=== PATIENT | female | born 1965 | race Caucasian/White ===

== ENCOUNTER → 2017-01-03 | Outpatient (CLI) | payer BC ==
[~2017-01-03] MED LIST: ASPI-232 PO; AZEL137S6 INTNAS; B-COCAP2 PO; CHOL100010 PO; FEXO1TAB58 PO; FLUO10CA48 PO; LEVO1TAB50 PO; MAGNESIUM PO; MELA1TAB3 PO
--- NOTE | 2017-01-04 13:18 | MAMMOGRAPHY REPORT ---
BILATERAL DIGITAL SCREENING MAMMOGRAM TOMOSYNTHESIS WITH CAD: 01/03/2017 CLINICAL HISTORY: Routine screening. Patient has no complaints. TECHNIQUE: Breast tomosynthesis in addition to standard 2D mammography was performed. Current study was also evaluated with a Computer Aided Detection (CAD) system. COMPARISON: Comparison is made to exams dated: 08/07/2015 mammogram, 07/09/2014 mammogram, 3 mammogram, 12/16/2010 ultrasound, 06/26/2009 mammogram, and 12/16/2010 mammogram - [facility]. BREAST COMPOSITION: The tissue of both breasts is heterogeneously dense, which may obscure small ma sses. FINDINGS: The parenchymal pattern is unchanged. No developing mass, architectural distortion or clu ster of suspicious microcalcifications is seen in either breast. IMPRESSION: ACR BI-RADS CATEGORY 2: BENIGN There is no mammographic evidence of malignancy. A 1 year screening mammogram is recommended. The p atient will receive written notification of the results. Approximately 10% of breast cancers are not detected with mammography. A negative mammographic repor t should not delay biopsy if a clinically suggestive mass is present. Briseida Wagner M.D. ay/:01/03/2017 16:53:09 [employer] M[employer]: Jillian ROSEN(R)(M), [facility] letter sent: Normal 1/2 BI-RADS Code: ACR BI-RADS Category 2: Benign
== END | disposition home or self-care (01) ==
LOC: C.MAMM 12:55
PROVIDERS: ATTEND Family Medicine
DX: Z12.31 Encounter for screening mammogram for malignant neoplasm of breast (principal)

== ENCOUNTER 2020-05-29 08:32 | Observation (INO) ==
[2020-05-29] MEDS ORDERED: KETOROLAC TROMETHAMINE 15 MG/ML VIAL IV STA (09:01)
[2020-05-29] MEDS ORDERED: ONDANSETRON INJ 2 MG/ML 2 ML VIAL IV STA (09:01)
--- NOTE | 2020-05-29 09:04 | Emergency Department Note ---
History of Present Illness General Chief complaint: Vomiting Stated complaint: THROWING UP, ABD PAIN Time Seen by Provider: 05/29/20 08:50 History of Present Illness Maximum Pain Intensity: 7 This is a 54-year-old female that presents to the emergency department via private vehicle with complaints of "throwing up, abdominal pain". The patient states that she felt fine when she went to bed last night. She ate scrambled eggs for dinner. She then notes around midnight she awoke with sudden onset of diarrhea, vomiting followed by excruciating right lower quadrant abdominal discomfort. She notes that the pain is worse with sitting up and is better when she lies flat. She denies any hematemesis or hematochezia. She denies any fevers, chills, chest pain, shortness of breath, loss of taste or smell. She notes a surgical history for that of ectopic but still has the ap pendix and gallbladder. She notes allergies to that a penicillin and sulfa. She has been n.p.o. since 7 PM last evening. Home Medications Home Medications Medication Instructions Recorded Confirmed Type cholecalciferol (vitamin D3) 50 2,000 unit PO QAM tab 04/23/19 05/29/20 History mcg (2,000 unit) tablet escitalopram oxalate 5 mg tablet 5 mg PO QAM tab 04/23/19 05/29/20 History levothyroxine 175 mcg tablet 175 mcg PO QAM tab 04/23/19 05/29/20 History omeprazole 40 mg capsule,delayed 40 mg PO QAM 04/07/20 05/29/20 History release clobetasol 0.05 % topical ointment 1 applic TOPICAL .COMPLEX #45 g 05/18/20 05/29/20 Rx bupropion HCl 150 mg PO QAM 05/29/20 05/29/20 History Allergies Allergy/AdvReac Type Severity Reaction Status Date / Time Penicillins Allergy Unknown swelling/ra Verified 05/29/20 09:55 sh Sulfa (Sulfonamide Allergy Verified 05/29/20 09:55 Antibiotics) Past Med/Surg History Medical History Angioma Attention deficit hyperactivity disorder, predominantly inattentive type (09/28/11) Dermatofibroma Ectopic Heartburn (09/28/11) Hypothyroid [id number] Migraine Migraine headache Seasonal allergies Vomiting Surgical History H/O unilateral salpingectomy right side S/P foot surgery S/P laparoscopy S/P nasal surgery nasal fx S/P wisdom tooth extraction Status post hysteroscopy Family History Father Myocardial infarction Family/Other No problems noted. Mother Alzheimer disease Grandmother (Paternal) Breast cancer Ovarian cancer Denies family history of Colorectal cancer Social History Smoking Status: Former smoker Hx Alcohol Use: Yes (social) Preferred Language: Colombian Feels Safe at Home: Yes Review of Systems A total of 10 systems reviewed and were otherwise negative Physical Exam Vital Signs Vital Signs - 24 hr 05/29/20 08:43 05/29/20 09:27 05/29/20 09:30 Temperature 36.5 C Temperature Source Oral Pulse Rate 91 H 73 71 Pulse Rate from SpO2 Sensor 72 71 Pulse Rhythm Regular Pulse Strength Normal Respiratory Rate 20 20 17 Respiratory Effort / Characteristics Non-Labored Spontaneous Respiratory Depth Normal Respiratory Pattern Regular Blood Pressure 118/78 122/84 129/80 Blood Pressure Mean 91 88 91 Blood Pressure Position Sitting Pulse Oximetry 98 99 95 Oxygen Delivery Method Room Air Sepsis Recent Fever Within 48 Hours No Sepsis New/Unexplained Change in Mental Status No Sepsis Action Taken by Nursing No Action Required 05/29/20 10:00 Temperature Temperature Source Pulse Rate 77 Pulse Rate from SpO2 Sensor 77 Pulse Rhythm Pulse Strength Respiratory Rate 23 Respiratory Effort / Characteristics Respiratory Depth Respiratory Pattern Blood Pressure 112/75 Blood Pressure Mean 83 Blood Pressure Position Pulse Oximetry 95 Oxygen Delivery Method Sepsis Recent Fever Within 48 Hours Sepsis New/Unexplained Change in Mental Status Sepsis Action Taken by Nursing VITAL SIGNS - Vital signs and nursing notes were reviewed. Stable and afebrile. GENERAL - 54-year-old female appearing her stated age who is in no acute distress. Communicates well with provider and answers questions appropriately. SKIN - Without rashes. No meningeal or petechial rash. HEAD - NC/AT. LUNGS - Chest wall symmetric without accessory muscle use, intercostals retractions, or central cyanosis. Normal vesicular breath sounds CTA B/L. No wheezes, rales, or rhonchi appreciated. CARDIAC - RRR with S1/S2. No murmur, rubs, or gallops appreciated. ABDOMEN - Abdominal contour normal without pulsations or visible masses. BS normoactive all four quadrants. Right lower quadrant abdominal tenderness palpation noted as well as referred tenderness when palpating left lower quadrant that radiates to the right lower quadrant. Mild guarding noted to palpation of the right lower quadrant. No palpable masses, hepatosplenomegaly, or ascites noted. EXTREMITIES - No clubbing or peripheral cyanosis. No pretibial edema present. +5/5 strength noted in UE/LE bilaterally. NEUROLOGIC - Cranial nerves II through XII grossly intact. Sensory intact to light touch throughout. PSYCH - A&O, and cooperates fully with examiner. Pt is very pleasant and interacts well with examiner. Course Administered Medications Discontinued Medications Sodium Chloride (Nss 1000ml) 1,000 mls @ 999 mls/hr IV .Q1H1M ASMITA Stop: 05/29/20 10:15 Last Infusion: 05/29/20 10:07 Dose: 0 mls/hr Documented by: [id number] Admin: 05/29/20 09:28 Dose: 999 mls/hr Documented by: [id number] Ioversol (Ioversol 100ml) 94 ml IV ONCE ONE Stop: 05/29/20 10:15 Last Admin: 05/29/20 10:14 Dose: 94 ml Documented by: [id number] Ketorolac Tromethamine (Ketorolac Tromethamine 15 Mg/Ml Vial) 15 mg IV NOW STA Stop: 05/29/20 09:02 Last Admin: 05/29/20 09:28 Dose: 15 mg Documented by: [id number] Ondansetron HCl (Ondansetron Inj 2 Mg/Ml 2 Ml Vial) 4 mg IV NOW STA Stop: 05/29/20 09:02 Last Admin: 05/29/20 09:28 Dose: 4 mg Documented by: [id number] Medical Decision Making Laboratory Data Result diagrams: 05/29/20 09:25 05/29/20 09:25 Lab Results 05/29/20 05/29/20 Range/Units 09:25 09:25 WBC 11.43 H (4.8-10.8) K/uL RBC 4.11 L (4.2-5.4) M/uL Hgb 12.7 (12.0-16.0) g/dL Hct 37.6 (37-47) % MCV 91.5 (80-100) fL MCH 30.9 (25-34) pg MCHC 33.8 (32-36) g/dL RDW Std Deviation 46.0 (36.4-46.3) fL RDW Coeff of Shiva 13.7 (11.5-14.5) % Plt Count 246 (130-400) K/uL MPV 9.4 (7.4-10.4) fL Immature Gran % (Auto) 0.3 % Neut % (Auto) 91.3 % Lymph % (Auto) 3.3 % Sierra % (Auto) 4.8 % Eos % (Auto) 0.1 % Baso % (Auto) 0.2 % Neut # (Auto) 10.44 H (1.4-6.5) K/uL Lymph # (Auto) 0.38 L (1.2-3.4) K/uL Sierra # (Auto) 0.55 (0.11-0.59) K/uL Eos # (Auto) 0.01 (0-0.5) K/uL Baso # (Auto) 0.02 (0-0.2) K/uL Immature Gran # (Auto) 0.03 H (0.00-0.02) K/uL Sodium 139 (136-145) mmol/L Potassium 4.1 (3.5-5.1) mmol/L Chloride 104 (98-107) mmol/L Carbon Dioxide 28 (21-32) mmol/L Anion Gap 7.0 (3-11) BUN 14 (7-18) mg/dl Creatinine 0.68 (0.6-1.2) mg/dl Est Cr Clr Drug Dosing 99.7 ml/min Est GFR ( Amer) 114.1 Est GFR (Non-Af Amer) 98.5 BUN/Creatinine Ratio 20.2 H (10-20) Glucose 139 H (70-99) mg/dl Calcium 9.2 (8.5-10.1) mg/dl Magnesium 1.9 (1.8-2.4) mg/dl Total Bilirubin 0.5 (0.2-1) mg/dl AST 13 L (15-37) U/L ALT 16 (12-78) U/L Alkaline Phosphatase 70 (45-117) U/L Total Protein 7.4 (6.4-8.2) gm/dl Albumin 3.8 (3.4-5.0) gm/dl Globulin 3.6 (2.5-4.0) gm/dl Albumin/Globulin Ratio 1.1 (0.9-2) Lipase 68 L (73-393) U/L Imaging Data Radiologist's Impression: CT OF THE ABDOMEN AND PELVIS WITH CONTRAST CLINICAL HISTORY: Right-sided abdominal pain, vomiting and diarrhea. COMPARISON STUDY: CT of the abdomen and pelvis April 28, 2011. Pelvic ultrasound June 18, 2019. TECHNIQUE: Following IV administration of 94 mL of Optiray-320, axial images of the abdomen and pelvis were obtained from the lung bases to the proximal femurs. Images were reviewed in the axial, sagittal, and coronal planes. IV contrast was administered without complication. Automated exposure control was utilized for the study. A dose lowering technique was utilized adhering to the principles of ALARA. CT DOSE: 529.62 mGy.cm FINDINGS: No pneumatosis, free air or portal venous gas is present. The liver, spleen, adrenal glands, kidneys and pancreas are normal. There is no biliary or pancreatic ductal dilatation. There is no hydronephrosis. There is no peripancreatic or pericholecystic infiltration. There is no evidence for a bowel obstruction. Several appendicoliths within the appendix are noted. The appendix is located inferior to the cecum. The appendix is dilated and fluid-filled, measuring 1.5 cm in caliber. There is mild periappendiceal infiltration. There is no abscess or free air. Several partially calcified fibroids are noted. Major vasculature is patent. There are no suspicious osseous lesions. IMPRESSION: 1. Findings consistent with acute appendicitis. No free air or abscess. 2. Several fibroids. ACT 112: Negative or not required by law. Electronically signed by: Lorenzo Sandra M.D. 05/29/2020 10:26 AM MDM Narrative Patient was seen and evaluated as above in room a 11. Review was performed of nursing notes and vital signs. I did review pertinent previous visits and patient history. After obtaining a thorough history and physical examination the above work up was performed. She presents to us today with vomiting, right lower quadrant abdominal pain. Palpation of the right lower quadrant elicits tenderness and palpation of the left lower quadrant also elicits referred tenderness to the right lower quadrant. Vital signs are stable. Given the presentation IV access was established. Labs were drawn. CT scan of the abdomen pelvis was obtained. She was medicated with IV fluids, Zofran and Toradol. Labs reveal mild leukocytosis 11.43 without significant anemia. No emergent metabolic disturbance. Glucose mildly elevated at 139. Lipase normal. CT scan results as above. Findings consistent with that of acute appendicitis. Presentation discussed with that of the general surgeon who came to evaluate th e patient. Please refer to further documentation regarding her stay. In the evaluation and treatment of this patient the following differential diagnoses were entertained: Diverticulitis, ovarian torsion, acute appendicitis, UTI, pyelonephritis, ureteral calculi, among others Impression & Plan Acute appendicitis, Acute right lower quadrant pain Discharge Plan Visit Data Chief Complaint: Vomiting Stated Complaint: THROWING UP, ABD PAIN ED Provider: Hermelindo Quiroz ED Midlevel Provider: Jluis Arboleda Discharge Problem: Acute appendicitis, Acute right lower quadrant pain Patient Disposition: Home - Self-Care Condition: Good Forms Stand Alone Forms: [facility] Emergency Department, Important Visit Information Prescriptions Prescriptions: No Action clobetasol 0.05 % ointment 1 applic topical .COMPLEX Qty: 45 RF: 1 cholecalciferol (vitamin D3) 2,000 unit tablet 2,000 unit PO QAM RF: 0 escitalopram oxalate 5 mg tablet 5 mg PO QAM RF: 0 levothyroxine 175 mcg tablet 175 mcg PO QAM RF: 0 omeprazole 40 mg capsule,delayed release(DR/EC) 40 mg PO QAM RF: 0 bupropion HCl 150 mg tablet extended release 24 hr 150 mg PO QAM RF: 0 Referrals Referrals: Alisha Lambert, [Primary Care Provider] -
[2020-05-29] MEDS ORDERED: SODIUM CHLORIDE 0.9% 1000ML 1,000 ML IV SCH ×2 (09:15→16:47)
[2020-05-29 09:38] LABS: Basophils # (auto) 0.02 K/uL (0-0.2); Basophils % (auto) 0.2 %; Eosinophils # (auto) 0.01 K/uL (0-0.5); Eosinophils % (auto) 0.1 %; Hematocrit (blood only) 37.6 % (37-47); Hemoglobin 12.7 g/dL (12.0-16.0); Immature Granulocytes # (auto) 0.03 K/uL (0.00-0.02); Immature Granulocytes % (auto) 0.3 %; Lymphocytes # (auto) 0.38 K/uL (1.2-3.4); Lymphocytes % (auto) 3.3 %; Mean Corpuscular Hemoglobin 30.9 pg (25-34); Mean Corpuscular Hgb Conc 33.8 g/dL (32-36); Mean Corpuscular Volume 91.5 fL (80-100); Mean Platelet Volume 9.4 fL (7.4-10.4); Monocytes # (auto) 0.55 K/uL (0.11-0.59); Monocytes % (auto) 4.8 %; Neutrophils # (auto) 10.44 K/uL (1.4-6.5); Neutrophils % (auto) 91.3 %; Platelet Count 246 K/uL (130-400); RDW Coefficient of Variation 13.7 % (11.5-14.5); Red Blood Count 4.11 M/uL (4.2-5.4); White Blood Count 11.43 K/uL (4.8-10.8)
[2020-05-29 09:54] LABS: Albumin Level 3.8 gm/dl (3.4-5.0); BUN Creatinine Ratio 20.2 (10-20); Calcium 9.2 mg/dl (8.5-10.1); Creatinine Clr Calc Pharmacy 99.7 ml/min; Est GFR (African American) 114.1; Est GFR (Non-African American) 98.5; Magnesium 1.9 mg/dl (1.8-2.4); Potassium 4.1 mmol/L (3.5-5.1)
[2020-05-29 09:57] LABS: Albumin Globulin Ratio 1.1 (0.9-2); Bilirubin,Total 0.5 mg/dl (0.2-1); Globulin 3.6 gm/dl (2.5-4.0); Total Protein 7.4 gm/dl (6.4-8.2)
[2020-05-29] MEDS ORDERED: IOVERSOL 100ml IV ONE (10:14)
--- NOTE | 2020-05-29 10:27 | CT Scan Report ---
CT OF THE ABDOMEN AND PELVIS WITH CONTRAST CLINICAL HISTORY: Right-sided abdominal pain, vomiting and diarrhea. COMPARISON STUDY: CT of the abdomen and pelvis April 28, 2011. Pelvic ultrasound June 18, 2019 . TECHNIQUE: Following IV administration of 94 mL of Optiray-320, axial images of the abdomen and pelvi s were obtained from the lung bases to the proximal femurs. Images were reviewed in the axial, sagitt al, and coronal planes. IV contrast was administered without complication. Automated exposure contro l was utilized for the study. A dose lowering technique was utilized adhering to the principles of A MORENA. CT DOSE: 529.62 mGy.cm FINDINGS: No pneumatosis, free air or portal venous gas is present. The liver, spleen, adrenal glands , kidneys and pancreas are normal. There is no biliary or pancreatic ductal dilatation. There is no h ydronephrosis. There is no peripancreatic or pericholecystic infiltration. There is no evidence for a bowel obstruction. Several appendicoliths within the appendix are noted. The appendix is located inf erior to the cecum. The appendix is dilated and fluid-filled, measuring 1.5 cm in caliber. There is m ild periappendiceal infiltration. There is no abscess or free air. Several partially calcified fibroi ds are noted. Major vasculature is patent. There are no suspicious osseous lesions. IMPRESSION: 1. Findings consistent with acute appendicitis. No free air or abscess. 2. Several fibroids. ACT 112: Negative or not required by law. Electronically signed by: Lorenzo Sandra M.D. 05/29/2020 10:26 AM
--- NOTE | 2020-05-29 11:45 | History & Physical Report ---
Date of Service May 29, 2020 Assessment & Plan (1) Acute appendicitis: Will plan for laparoscopic appendectomy this afternoon. COVID testing is pending. NPO since around [address] Yvonne barrios pt in ER- for lap appendectomy , possible open operation cipro/ flagyl IV History of Present Illness Primary Care Provider: Alisha Lambert, DO 54 y/o female with abdominal pain that began last evening, woke up around midnight with increased pain, N&V. Vomiting has resolved but pain continues. No other histry of pain or abdominal complaints. Previous surgery for ectopic . Allergies Allergy/AdvReac Type Severity Reaction Status Date / Time Penicillins Allergy Unknown swelling/ra Verified 05/29/20 09:55 sh Sulfa (Sulfonamide Allergy Verified 05/29/20 09:55 Antibiotics) Home Medications Home Medications Medication Instructions Recorded Confirmed Type cholecalciferol (vitamin D3) 50 2,000 unit PO QAM tab 04/23/19 05/29/20 History mcg (2,000 unit) tablet escitalopram oxalate 5 mg tablet 5 mg PO QAM tab 04/23/19 05/29/20 History levothyroxine 175 mcg tablet 175 mcg PO QAM tab 04/23/19 05/29/20 History omeprazole 40 mg capsule,delayed 40 mg PO QAM 04/07/20 05/29/20 History release clobetasol 0.05 % topical ointment 1 applic TOPICAL .COMPLEX #45 g 05/18/20 05/29/20 Rx bupropion HCl 150 mg PO QAM 05/29/20 05/29/20 History Past Med/Surg History Medical History Angioma Attention deficit hyperactivity disorder, predominantly inattentive type (09/28/11) Dermatofibroma Ectopic Heartburn (09/28/11) Hypothyroid [id number] Migraine Migraine headache Seasonal allergies Vomiting Surgical History H/O unilateral salpingectomy right side S/P foot surgery S/P laparoscopy S/P nasal surgery nasal fx S/P wisdom tooth extraction Status post hysteroscopy Family History Father Myocardial infarction Family/Other No problems noted. Mother Alzheimer disease Grandmother (Paternal) Breast cancer Ovarian cancer Denies family history of Colorectal cancer Social History Smoking Status: Former smoker Hx Alcohol Use: Yes (social) Preferred Language: Citizen Of [place] Feels Safe at Home: Yes Review of Systems Constitutional: no fever and no chills Gastrointestinal: + abdominal pain, + nausea and + vomiting Physical Exam Constitutional: WD/WN, vitals as above Respiratory: normal respiratory effort, lungs clear to auscultation Cardiovascular: RRR, no murmur, no edema Gastrointestinal (Abdomen): Inspection/Auscultation: abdomen not distended Percussion/Palpation: + abdomen tender (RLQ) and abdomen soft; no guarding Results & Data Results & Data ([facility]) Vital Signs (Past 12 Hours) Vital Signs Temp Pulse Resp BP Pulse Ox 05/29/20 10:00 77 23 112/75 95 05/29/20 09:30 71 17 129/80 95 05/29/20 09:27 73 20 122/84 99 05/29/20 08:43 36.5 C 91 H 20 118/78 98 PG Care Time/CCT Total # of Minutes Spent Total Time Spent with Patient: Total time spent is greater than 50% in coordination of care (as documented) at patient's floor/unit and/or counseling patient: Coding Level of Care Code None Diagnoses Acute appendicitis K35.80
[2020-05-29] MEDS ORDERED: CIPROFLOXACIN / D5W 400 MG/200 ML BAG IV STA (12:13)
[2020-05-29] MEDS ORDERED: metroNIDAZOLE 500 MG/100 ML BAG IV STA (12:13)
[2020-05-29] MEDS ORDERED: LACTATED RINGER'S 1,000 ML IV SCH (12:15)
[2020-05-29] MEDS ORDERED: MoRPHine SULFATE 4 MG/ML 1 ML CARP\\VIAL IV STA (12:27)
[2020-05-29 13:20] LABS: Appearance Urine Clear (Clear); Bacteria Urine Automated Negative (Negative); Bilirubin Urine Negative (Negative); Blood Urine 1+ (Negative); Color Urine Yellow; Glucose Urine UA Negative (Negative); Ketones Urine 2+ (Negative); Leukocyte Esterase Urine Negative (Negative); Nitrite Urine Negative (Negative); Protein Urine Negative (Negative); Specific Gravity Urine > 1.045 (1.000-1.030); Urobilinogen Urine Negative (Negative)
--- NOTE | 2020-05-29 13:44 | Anesthesiology Consultation ---
Date of Service May 29, 2020 Assessment & Plan (1) Encounter for pre-operative examination: Chart Review Chart Review: Acceptable Risk for Surgery History Surgery Operation Date: 05/29/20 08:00 Proposed Procedures p Laparoscopic Appendectomy - Sheldon Patrikc MD, FACS Height/Weight Height: 5 ft 6 in Weight: 80 kg Allergies Allergy/AdvReac Type Severity Reaction Status Date / Time Penicillins Allergy Unknown swelling/ra Verified 05/29/20 09:55 sh Sulfa (Sulfonamide Allergy Verified 05/29/20 09:55 Antibiotics) Medications Home Medications Medication Instructions Recorded Confirmed Last Taken cholecalciferol (vitamin D3) 50 2,000 unit PO QAM tab 04/23/19 05/29/20 05/28/20 mcg (2,000 unit) tablet escitalopram oxalate 5 mg tablet 5 mg PO QAM tab 04/23/19 05/29/20 05/28/20 levothyroxine 175 mcg tablet 175 mcg PO QAM tab 04/23/19 05/29/20 05/28/20 omeprazole 40 mg capsule,delayed 40 mg PO QAM 04/07/20 05/29/20 05/28/20 release clobetasol 0.05 % topical ointment 1 applic TOPICAL .COMPLEX #45 g 05/18/20 05/29/20 05/28/20 bupropion HCl 150 mg PO QAM 05/29/20 05/29/20 05/28/20 Active Medications Generic Name Dose Route Start Last Admin Trade Name Freq PRN Reason Stop Dose Admin Lactated Ringer's 1,000 mls @ 125 mls/hr 05/29/20 12:15 05/29/20 12:59 Lr IV 06/28/20 12:14 125 mls/hr .Q8H ASMITA Administration Ciprofloxacin 400 mg in 200 mls @ 100 mls/hr 05/29/20 12:13 05/29/20 12:59 Cipro / D5w IV 05/29/20 14:12 100 mls/hr NOW STA Administration Protocol Past Medical History Medical History Angioma Attention deficit hyperactivity disorder, predominantly inattentive type (09/28/11) Dermatofibroma Ectopic Heartburn (09/28/11) Hypothyroid [id number] Migraine Migraine headache Seasonal allergies Vomiting Past Family History Family History Father Myocardial infarction Family/Other No problems noted. Mother Alzheimer disease Grandmother (Paternal) Breast cancer Ovarian cancer Denies family history of Colorectal cancer Past Surgical History Surgical History H/O unilateral salpingectomy right side S/P foot surgery S/P laparoscopy S/P nasal surgery nasal fx S/P wisdom tooth extraction Status post hysteroscopy Social History Smoking Status: Former smoker Hx Alcohol Use: Yes (social) Physical Exam Vital Signs Last Vital Signs Temp 36.5 C 05/29/20 08:43 Pulse 82 05/29/20 12:06 Resp 20 05/29/20 12:06 BP 107/74 05/29/20 12:06 Pulse Ox 99 05/29/20 12:06 Testing Laboratory Results 05/29/20 09:25 05/29/20 09:25 Urine Color Yellow 05/29/20 13:00 Urine Appearance Clear (Clear) 05/29/20 13:00 Urine pH 7.0 (4.5-7.5) 05/29/20 13:00 Ur Specific V[place]ant > 1.045 (1.000-1.030) H 05/29/20 13:00 Urine Protein Negative (Negative) 05/29/20 13:00 Urine Glucose (UA) Negative (Negative) 05/29/20 13:00 Urine Ketones 2+ (Negative) H 05/29/20 13:00 Urine Nitrite Negative (Negative) 05/29/20 13:00 Ur Leukocyte Esterase Negative (Negative) 05/29/20 13:00 Urine WBC (Auto) 1-5 /hpf (0-5) 05/29/20 13:00 Urine RBC (Auto) 5-10 /hpf (0-4) H 05/29/20 13:00 U Hyaline Cast (Auto) 1-5 /lpf (0-5) 05/29/20 13:00 U Epithel Cells (Auto) 5-10 /lpf (0-5) H 05/29/20 13:00 Urine Bacteria (Auto) Negative (Negative) 05/29/20 13:00 05/29/20 13:00 POC Ur Test NEG
[2020-05-29] MEDS ORDERED: ONDANSETRON INJ 2 MG/ML 2 ML VIAL ONE (13:54)
[2020-05-29] MEDS ORDERED: DEXAMETHASONE SOD INJ 4 MG/ML VIAL ONE (13:54)
[2020-05-29] MEDS ORDERED: LIDOCAINE HCL 2% 2 ML VIAL/AMP(20MG/ML) INFIL ONE (13:54)
[2020-05-29] MEDS ORDERED: ROCURONIUM BROMIDE 10 MG/ML 5 ML VIAL IV ONE (13:54)
[2020-05-29] MEDS ORDERED: PROPOFOL IV EMULSION 10 MG/ML 20 ML VIAL IV ONE ×2 (13:54→15:05)
[2020-05-29] MEDS ORDERED: MIDAZOLAM HCL 1 MG/ML 2ML VIAL ONE (13:55)
[2020-05-29] MEDS ORDERED: fentaNYL citrate 100 MCG/2 ML VIAL ONE (13:55)
[2020-05-29] MEDS ORDERED: ONDANSETRON INJ 2 MG/ML 2 ML VIAL IV PRN ×2 (14:03→16:47)
[2020-05-29] MEDS ORDERED: KETOROLAC 30 MG/ML VIAL IV PRN (14:03)
[2020-05-29] MEDS ORDERED: fentaNYL citrate 100 MCG/2 ML VIAL IV PRN (14:03)
[2020-05-29] MEDS ORDERED: ATROPINE SULFATE 0.1 MG/ML 10ML SYR IV PRN (14:03)
[2020-05-29] MEDS ORDERED: BUPIVACAINE 0.5 % 5 MG/1 ML MPF 30ML VIAL ONE (14:14)
[2020-05-29] MEDS ORDERED: LARYING-O-JET KIT (LTA) ONE (14:39)
[2020-05-29] MEDS ORDERED: GLYCOPYRROLATE 0.2 MG/ML VIAL ONE (14:39)
[2020-05-29] MEDS ORDERED: NEOSTIGMINE METHYLSULFATE 5 MG/5 ML SYR ONE (14:39)
[2020-05-29] MEDS ORDERED: ePHEDrine sulfate 50 MG/ML AMP ONE (14:44)
[2020-05-29] MEDS ORDERED: ACETAMINOPHEN 1000 MG/100 ML IV IV ONE (15:21)
--- NOTE | 2020-05-29 15:29 | Post Operative Brief Note ---
PG Immediate Post Op with CF Date of Surgery May 29, 2020 Pre & Post Diagnosis Operation Date: 05/29/20 08:00 Pre-Op Diagnosis: Acute Appendicitis Post-Op Diagnosis: Acute Appendicitis I identified the patient and participated in the time-out.: Yes Procedure Operation Date: 05/29/20 08:00 Actual Procedures p Laparoscopic Appendectomy(Not Applicable) - Sheldon Patrick MD, FACS Surgeon Sheldon Patrick MD, FACS Pier Worker Lilliana Porter Estimated Blood Loss 40 Findings Consistent with Post-Op Diagnosis Specimens Specimen Description: A: Appendix
[2020-05-29] MEDS ORDERED: ACETAMINOPHEN 1,000 MG/100 ML VIAL IV ONE (15:30)
--- NOTE | 2020-05-29 16:31 | Anesthesiology Progress Note ---
Date of Service May 29, 2020 Anesthesia Post Procedure Vital Signs Vital Signs: Temp Pulse Pulse Pulse Resp BP BP 05/29/20 16:19 36.9 C 88 16 128/75 05/29/20 16:10 93 H 16 136/77 05/29/20 16:00 91 H 16 141/76 H 05/29/20 15:50 88 16 135/79 05/29/20 15:43 36.5 C 84 16 135/70 05/29/20 14:03 36.6 C 83 18 05/29/20 12:06 82 20 107/74 05/29/20 10:00 77 23 112/75 05/29/20 09:30 71 17 129/80 05/29/20 09:27 73 20 122/84 05/29/20 08:43 36.5 C 91 H 20 118/78 BP Pulse Ox 05/29/20 16:19 95 05/29/20 16:10 97 05/29/20 16:00 100 05/29/20 15:50 100 05/29/20 15:43 100 05/29/20 14:03 133/78 97 05/29/20 12:06 99 05/29/20 10:00 95 05/29/20 09:30 95 05/29/20 09:27 99 05/29/20 08:43 98 Pain Intensity Right Lower Abdomen: Pain Intensity: 7 Transfer of Care Handoff Completed per policy Notes Mental Status: alert / awake / arousable Patient Amnestic to Procedure: Yes Nausea / Vomiting: adequately controlled Pain: adequately controlled Airway Patency, RR, SpO2: stable & adequate BP & HR: stable & adequate Hydration State: stable & adequate Anesthetic Complications: no major complications apparent
[2020-05-29] MEDS ORDERED: HYDROmorphone INJ 1 MG/ML SYRINGE IV PRN (16:47)
[2020-05-29] MEDS ORDERED: PROMETHAZINE HCL 25 MG in SODIUM CHLORIDE 0.9% 50 ML IV PRN (16:47)
[2020-05-29] MEDS ORDERED: PROMETHAZINE HCL 12.5 MG in SODIUM CHLORIDE 0.9% 50 ML IV PRN (16:47)
[2020-05-29] MEDS ORDERED: IBUPROFEN 600 MG TAB PO PRN (16:47)
[2020-05-29] MEDS ORDERED: HYDROmorphone INJ 0.5 MG/0.5 ML SYR IV PRN (16:47)
[2020-05-29] MEDS ORDERED: ACETAMINOPHEN 325 MG TAB PO PRN (16:47)
[2020-05-29] MEDS ORDERED: HYDROCODONE/ACETAMOPHEN 5/325MG TAB PO PRN (16:47)
[2020-05-29] MEDS: HYDROCODONE/ACETAMOPHEN 5/325MG TAB PO PRN (21:19)
[2020-05-29] MEDS: metroNIDAZOLE 500 MG/100 ML BAG IV SCH (21:21)
[2020-05-30] MEDS ORDERED: CIPROFLOXACIN / D5W 400 MG/200 ML BAG IV SCH
--- NOTE | 2020-05-30 00:31 | Operative Report (OR) ---
DATE OF OPERATION: 05/29/2020 NAME OF OPERATION: Laparoscopic appendectomy. PREOPERATIVE DIAGNOSIS: Acute appendicitis. POSTOPERATIVE DIAGNOSIS: Acute appendicitis. STAFF SURGEON: Sheldon Patrick MD. WATER PURIFIER: Yovanny Porter PA-C. ANESTHESIA: General. DESCRIPTION OF PROCEDURE: The patient was brought into the operating room and placed on the operating table in supine position. My library technical assistant helped with prepping, draping, removal of the appendix and closure of the wounds. The patient's abdomen was prepped and draped in usual fashion. Pneumatic stockings were placed. Her incisions were anesthetized using 0.5% plain Marcaine. Incision was made above the umbilicus, carrying dissection down to the fascia through significant adipose tissue, placing a Veress needle producing pneumoperitoneum. A 12 mm port was placed at this level and then under visualization, two 5 mm ports were placed, 1 suprapubic, 1 in the left lower quadrant. The appendix was grasped and retracted. It was very swollen. There was a mild exudate. There was no abscess. No significant cloudy fluid. The base of the appendix was dissected free and then transected using an Endo-FRANCISCO stapler, then 2 additional loads used to transect the mesoappendix. The appendix was placed in an Endobag. I did have to enlarge the fascial defect and skin defect because of the size of the appendix to remove it. The appendix was removed. We did irrigate and aspirate the fluid in the right lower quadrant and hemostasis was maintained. Fascia was closed at the umbilicus using interrupted 0 PDS suture. Skin reapproximated using 5-0 Prolene suture. Dressings applied and patient transferred to recovery room in stable condition. I attest to the content of the Intraoperative Record and any orders documented therein. Any exception s are noted below.
[2020-05-30] MEDS: metroNIDAZOLE 500 MG/100 ML BAG IV SCH (05:15)
[2020-05-30] MEDS: HYDROCODONE/ACETAMOPHEN 5/325MG TAB PO PRN ×2 (05:20→09:18)
[2020-05-30 05:40] LABS: Hematocrit (blood only) 32.3 % (37-47); Hemoglobin 10.8 g/dL (12.0-16.0); Immature Granulocytes # (auto) 0.02 K/uL (0.00-0.02); Immature Granulocytes % (auto) 0.2 %; Lymphocytes # (auto) 0.51 K/uL (1.2-3.4); Mean Corpuscular Hemoglobin 30.9 pg (25-34); Mean Corpuscular Hgb Conc 33.4 g/dL (32-36); Mean Corpuscular Volume 92.6 fL (80-100); Monocytes # (auto) 0.48 K/uL (0.11-0.59); Monocytes % (auto) 4.7 %; Neutrophils # (auto) 9.19 K/uL (1.4-6.5); Neutrophils % (auto) 90.1 %; Platelet Count 240 K/uL (130-400); RDW Coefficient of Variation 14.2 % (11.5-14.5); RDW Standard Deviation 48.1 fL (36.4-46.3); Red Blood Count 3.49 M/uL (4.2-5.4)
[2020-05-30 05:59] LABS: BUN Creatinine Ratio 11.2 (10-20); Calcium 8.3 mg/dl (8.5-10.1); Creatinine Clr Calc Pharmacy 101.2 ml/min; Est GFR (African American) 114.7; Potassium 3.8 mmol/L (3.5-5.1)
[2020-05-30 06:03] LABS: Albumin Globulin Ratio 0.9 (0.9-2); Bilirubin,Total 0.3 mg/dl (0.2-1); Globulin 3.2 gm/dl (2.5-4.0); Phosphorus 2.9 mg/dl (2.5-4.9); Total Protein 6.2 gm/dl (6.4-8.2)
[2020-05-30] MEDS ORDERED: LEVOTHYROXINE SODIUM 175 MCG TABLET PO SCH (06:30)
[2020-05-30] MEDS ORDERED: PANTOprazole 40 MG TAB PO SCH (09:00)
[2020-05-30] MEDS ORDERED: ESCITALOPRAM OXALATE 10 MG TAB PO SCH (09:00)
[2020-05-30] MEDS ORDERED: BuPROPion XL 150 MG TABCR PO SCH (09:00)
[2020-05-30] MEDS ORDERED: HEPARIN SOD 5,000 UNIT/0.5 ML VIAL SQ SCH (09:00)
--- NOTE | 2020-05-30 21:12 | Discharge Summary (DS) ---
PRINCIPAL DIAGNOSIS: Acute appendicitis. PROCEDURE: The patient underwent laparoscopic appendectomy. HISTORY OF PRESENT ILLNESS: The patient is a 54-year-old female admitted through the Emergency Room with acute appendicitis, taken to the operating room on 05/29/2020 where she underwent laparoscopic appendectomy, which she tolerated very well. She has done well and she is ready for discharge today to home on pain medication and oral antibiotics to be seen in the surgical clinic next week.
== END 2020-05-30 11:23 | disposition home or self-care (01) ==
LOC: ED 08:32 → OR 13:50 → 3N 13:50